=== PATIENT | female | born 1990 | race Caucasian/White ===

== ENCOUNTER 2017-09-25 16:11 | Emergency (ER) | payer OTHER ==
[2017-09-25 16:16] VITALS: BP 134/88
--- NOTE | 2017-09-25 16:43 | ER Document Report ---
ED General - General TRAVEL OUTSIDE OF THE [place] IN LAST 30 DAYS: No - General Chief Complaint: Bloody Stools Stated Complaint: POSSIBLE BLOOD IN STOOL Time Seen by Provider: 09/25/17 16:31 Notes: Patient's presents with concern of bright red blood mixed in her stool that started this morning. Has not had these symptoms before. She did have gastric bypass but this was over 2 months ago. Denies any recent fevers chills nausea or vomiting. She does have a history of constipation but states that it has been better recently. Denies any black stools. She also states that she is been having sharp right-sided flank pain that is better with stretching her back forward but worse with turning to the left and right. Denies any recent traumas or falls. Denies any recent trauma to the rectum. Not on any blood thinners (LONG,YOLANDE H) - Related Data Allergies/Adverse Reactions: No Known Allergies Allergy (Verified 09/25/17 16:12) Past Medical History - Social History Smoking Status: Never Smoker Chew tobacco use (# tins/day): No Frequency of alcohol use: Occasional Drug Abuse: None Family History: None Patient has suicidal ideation: No Patient has homicidal ideation: No Renal/ Medical History: Denies: Hx Peritoneal Dialysis Review of Systems - Review of Systems Constitutional: No symptoms reported EENT: No symptoms reported Cardiovascular: No symptoms reported Respiratory: No symptoms reported Gastrointestinal: No symptoms reported, Rectal bleeding Genitourinary: No symptoms reported Female Genitourinary: No symptoms reported Musculoskeletal: No symptoms reported, Back pain - Right-sided back pain Skin: No symptoms reported Hematologic/Lymphatic: No symptoms reported Neurological/Psychological: No symptoms reported Physical Exam - General General appearance: Appears well - HEENT Head: Normocephalic, Atraumatic - Respiratory Respiratory status: No respiratory distress Chest status: Nontender - Cardiovascular Rhythm: Regular Heart sounds: Normal auscultation - Abdominal Inspection: Normal Distension: No distension Bowel sounds: Normal - Back Back: Normal, Nontender - Neurological Neuro grossly intact: Yes Cognition: Normal Orientation: AAOx4 - Psychological Associated symptoms: Normal affect - Vital signs Vitals: Temp Pulse Resp BP Pulse Ox 98.3 F 62 16 134/88 H 99 09/25/17 16:15 09/25/17 16:15 09/25/17 16:15 09/25/17 16:15 09/25/17 16:15 Course - Re-evaluation Re-evalutation: 09/25/17 16:42 Patient is well-appearing in no acute distress a benign exam. Her back pain appears musculoskeletal as it is positional in nature worse with movement and better with rest. She also has had bright red blood in stool that started today. I explained the patient constipation can cause this and will obtain KUB to evaluate her stool burden that she has been having history of constipation in the past. Does not appear infectious no recent nausea vomiting or fevers. No burning with urination but will evaluate urinalysis and test as well. 09/25/17 17:50 Urinalysis shows no signs of infection KUB does show nonobstructive gas pattern with mild amount of stool in transverse colon. Will place patient on MiraLAX and instructed to follow-up with primary care physician in the next 3-4 days if symptoms are persisting or to return to emergency department sooner if worsening symptoms and any development of fevers. (YOLANDE MIMS) - Vital Signs Vital signs: Temp Pulse Resp BP Pulse Ox 98.3 F 62 16 134/88 H 99 09/25/17 16:15 09/25/17 16:15 09/25/17 16:15 09/25/17 16:15 09/25/17 16:15 - Laboratory Laboratory results interpreted by me: 09/25/17 16:46 Urine Protein 100 H Urine Ketones TRACE H Urine Blood SMALL H Urine Bilirubin MODERATE H Urine Urobilinogen 4.0 H Discharge - Discharge Clinical Impression: Rectal bleed Condition: Good Disposition: HOME, SELF-CARE Additional Instructions: Please take MiraLAX as prescribed and follow-up with your primary care physician in the next 5-6 days if symptoms are continuing or sooner in the emergency department for any other concerns worsening symptoms or fevers Prescriptions: Polyethylene Glycol 3350 [Miralax Powder 17 gm/Packet] 1 packet PO DAILY #30 pkg Forms: Return to Work Scribe Attestation: 09/26/17 23:03 I personally performed the services described documentation, reviewed and edited the documentation which was dictated to describe my presence, and it accurately records my words and actions. (YOLANDE MIMS)
[2017-09-25 17:10] LABS: APPEARANCE,URINE CLOUDY; BILIRUBIN,URINE MODERATE (NEGATIVE); COLOR,URINE AMBER; GLUCOSE, URINE NEGATIVE (NEGATIVE); KETONES,URINE TRACE mg/dL (NEGATIVE); LEUKOCYTE ESTERASE,URINE NEGATIVE (NEGATIVE); NITRITE,URINE NEGATIVE (NEGATIVE); PROTEIN,URINE 100 mg/dL (NEGATIVE)
--- NOTE | 2017-09-25 17:27 | RADIOLOGY REPORT (SQ) ---
EXAM DESCRIPTION: KUB/ABDOMEN (SINGLE VIEW) COMPLETED DATE/TIME: 09/25/2017 5:13 pm REASON FOR STUDY: eval for constipation COMPARISON: None. NUMBER OF VIEWS: One view. TECHNIQUE: Supine radiographic image of the abdomen acquired. LIMITATIONS: None. FINDINGS: BOWEL GAS PATTERN: Normal bowel gas pattern. No dilated loops. CALCIFICATIONS: No suspicious calcifications. SOFT TISSUES: No gross mass or suggestion of organomegaly. HARDWARE: None in the abdomen. BONES: No acute fracture. No worrisome bone lesions. OTHER: No other significant finding. IMPRESSION: NO RADIOGRAPHIC EVIDENCE FOR ACUTE ABDOMINAL DISEASE. TECHNICAL DOCUMENTATION: JOB ID: [id number] [place]-[id number] 2010 [employer]- All Rights Reserved Reading location - IP/workstation name: [email or web address]
== END 2017-09-25 18:00 | disposition home or self-care (01) ==
LOC: ER 16:11
DX: K62.5 Hemorrhage of anus and rectum (principal); Z98.84 Bariatric surgery status
CPT/HCPCS: 74018; 81001; 81025; 99283

== ENCOUNTER 2017-12-10 09:36 | Emergency (ER) | payer OTHER ==
[2017-12-10] MEDS ORDERED: ONDANSETRON HCL INJ/PF 4 MG/2 ML SDV IV ONE (09:57)
[2017-12-10] MEDS ORDERED: NORMAL SALINE 1000 ML 1,000 ML IV ONE (09:57)
[2017-12-10] MEDS ORDERED: KETOROLAC TROMETHAMINE INJ/PF 30 MG/1 ML SDV IV ONE (09:58)
--- NOTE | 2017-12-10 09:58 | ER Document Report ---
ED General - General Chief Complaint: Low Back Pain Stated Complaint: BACK PAIN Time Seen by Provider: 12/10/17 09:48 Notes: Patient is a 27-year-old female who presents emergency department the chief complaint of sudden onset left flank pain. Patient states that she was at work and started initially intermittently at first and now is a constant sharp stabbing pain in her back is worse with movement. She admits to associated pyuria, urinary frequency and urgency. Denies any fevers or chills. She admits to nausea without vomiting. Otherwise healthy female. Last menstrual period was 2 weeks ago. Patient is currently sexually active and actively trying to get . TRAVEL OUTSIDE OF THE [place] IN LAST 30 DAYS: No - Related Data Allergies/Adverse Reactions: No Known Allergies Allergy (Verified 09/25/17 16:12) Past Medical History - Social History Smoking Status: Never Smoker Family History: None Renal/ Medical History: Denies: Hx Peritoneal Dialysis Past Surgical History: Reports: Hx Abdominal Surgery - gastric bypass Review of Systems - Review of Systems Constitutional: No symptoms reported Cardiovascular: No symptoms reported Respiratory: No symptoms reported Gastrointestinal: See HPI Genitourinary: See HPI Female Genitourinary: No symptoms reported Musculoskeletal: See HPI -: Yes All other systems reviewed and negative Physical Exam - Vital signs Vitals: Temp Pulse Resp BP Pulse Ox 98.1 F 74 16 136/94 H 100 12/10/17 09:41 12/10/17 09:41 12/10/17 09:41 12/10/17 09:41 12/10/17 09:41 - Notes Notes: PHYSICAL EXAM GENERAL: Alert, interacts well. HEAD: Normocephalic, atraumatic. EYES: Pupils equal, round, and reactive to light. Extraocular movements intact. ENT: Oral mucosa moist, tongue midline. NECK: Full range of motion. Supple. Trachea midline. LUNGS: Clear to auscultation bilaterally, no wheezes, rales, or rhonchi. No respiratory distress. HEART: Regular rate and rhythm. No murmurs, gallops, or rubs. ABDOMEN: Soft, nondistended, nontender. No guarding, rebound, or rigidity.. Bowel sounds present in all 4 quadrants. Back pain: Significant for left CVA tenderness no superficial tenderness to palpation of the bilateral parathoracic and paralumbar musculature. No spinous process deformities, step-offs or tenderness. EXTREMITIES: Moves all 4 extremities spontaneously. No edema, No cyanosis. NEUROLOGICAL: Alert and oriented x4. Normal speech. PSYCH: Normal affect, normal mood. SKIN: Warm, dry, normal turgor. No rashes or lesions noted. Course - Re-evaluation Re-evalutation: 12/10/17 13:[address] negative for stone,, will send for US to r/o torsion 12/10/17 14:09 US (-) for torsion but shows plevic free fluid and cyst. Ovary with bloodflow, no concern for torsion. Patient feeling better. Tolerating PO. Low suspicion for torsion, PID, ectopic, appendicitis, kidney stone. Will d.c with nausea and pain medication. Given strict return precautions. - Vital Signs Vital signs: Temp Pulse Resp BP Pulse Ox 98.1 F 89 16 125/79 97 12/10/17 14:38 12/10/17 14:38 12/10/17 14:38 12/10/17 14:38 12/10/17 14:38 - Laboratory Result Diagrams: 12/10/17 10:30 12/10/17 10:30 Laboratory results interpreted by me: 12/10/17 10:30 RDW 14.1 H - Diagnostic Test Radiology reviewed: Image reviewed, Reports reviewed Discharge - Discharge Clinical Impression: Ovarian cyst Qualifiers: Laterality: left Qualified Code(s): N83.202 - Unspecified ovarian cyst, left side Condition: Good Disposition: HOME, SELF-CARE Instructions: Use of Cicz-Dgv-Wzqvapy Ibuprofen ([facility]), Ovarian Cyst ([facility]) Prescriptions: Ondansetron [Zofran Odt 4 mg Tablet] 1 - 2 tab PO Q4H PRN #15 tab.rapdis PRN Reason: For Nausea/Vomiting Tramadol HCl 50 mg PO BID #10 tablet Forms: Return to Work Referrals: [facility] [Provider Group] - Follow up in 3-5 days
[2017-12-10 10:35] LABS: APPEARANCE,URINE CLEAR; BILIRUBIN,URINE NEGATIVE (NEGATIVE); COLOR,URINE YELLOW; GLUCOSE, URINE NEGATIVE (NEGATIVE); KETONES,URINE NEGATIVE (NEGATIVE); LEUKOCYTE ESTERASE,URINE NEGATIVE (NEGATIVE); NITRITE,URINE NEGATIVE (NEGATIVE); PROTEIN,URINE NEGATIVE (NEGATIVE); URINE SPECIFIC GRAVITY 1.015; UROBILINOGEN,URINE NEGATIVE mg/dL (<2.0)
[2017-12-10 10:47] LABS: ABSOLUTE EOSINOPHILS # (AUTO) 0.1 10^3/uL (0.0-0.6); ABSOLUTE LYMPHOCYTES (AUTO) 1.6 10^3/uL (0.5-4.7); ABSOLUTE MONOCYTES (AUTO) 0.7 10^3/uL (0.1-1.4); ABSOLUTE NEUT (AUTO) 5.1 10^3/uL (1.7-8.2); BASOPHILS % (AUTO) 0.2 % (0-2); EOSINOPHILS % (AUTO) 1.7 % (0-6); HEMATOCRIT 40.7 % (36.0-47.0); HEMOGLOBIN 13.8 g/dL (12.0-15.5); LYMPHOCYTES % (AUTO) 21.2 % (13-45); MEAN CORPUSCULAR HEMOGLOBIN 29.9 pg (27.0-33.4); MEAN CORPUSCULAR HGB CONC 33.9 g/dL (32.0-36.0); MEAN CORPUSCULAR VOLUME 88 fl (80-97); MONOCYTES % (AUTO) 9.2 % (3-13); PLATELET COUNT 287 10^3/uL (150-450); RED BLOOD COUNT 4.62 10^6/uL (3.72-5.28); RED CELL DISTRIBUTION WIDTH 14.1 % (11.5-14.0); SEGMENTED NEUTROPHILS % (AUTO) 67.7 % (42-78); TOTAL CELLS COUNTED % (AUTO) 100 %; WHITE BLOOD COUNT 7.5 10^3/uL (4.0-10.5)
[2017-12-10 11:05] LABS: ANION GAP 9 (5-19); BLOOD UREA NITROGEN 12 mg/dL (7-20); CALCIUM 9.5 mg/dL (8.4-10.2); CARBON DIOXIDE 27 mmol/L (22-30); CHLORIDE 105 mmol/L (98-107); GLUCOSE 85 mg/dL (75-110); POTASSIUM 4.2 mmol/L (3.6-5.0); SODIUM 141.2 mmol/L (137-145)
[2017-12-10] MEDS ORDERED: MORPHINE SULFATE 10 MG/ML INJ IV ONE ×2 (12:01→12:53)
--- NOTE | 2017-12-10 12:28 | RADIOLOGY REPORT (SQ) ---
EXAM DESCRIPTION: CT LTD RENAL STONE PROTOCOL ON COMPLETED DATE/TIME: 12/10/2017 11:50 am REASON FOR STUDY: left flank pain COMPARISON: None. TECHNIQUE: CT scan of the abdomen and pelvis performed without intravenous or oral contrast. Images reviewed with lung, soft tissue, and bone windows. Reconstructed coronal and sagittal MPR images revi ewed. All images stored on PACS. All CT scanners at this facility use dose modulation, iterative reconstruction, and/or weight based d osing when appropriate to reduce radiation dose to as low as reasonably achievable (ALARA). [facility]: Dose Right [facility]: CareDose [facility]: Dose Right [facility]: Teradose 4D [facility]: [employer] RADIATION DOSE: 579.14mGy. LIMITATIONS: None. FINDINGS: LOWER CHEST: Chronic scarring right lung base. NON-CONTRASTED LIVER, SPLEEN, ADRENALS: Liver: No abnormality seen. Spleen: No abnormality seen. A drenals: No abnormality seen. PANCREAS: No abnormality seen. GALLBLADDER: No abnormality seen. RIGHT KIDNEY AND URETER: No abnormality seen. LEFT KIDNEY AND URETER: No abnormality seen. AORTA AND RETROPERITONEUM: No aneurysm. No retroperitoneal masses or adenopathy. Nonenlarged periaor tic and interaortocaval nodes. Small inguinal nodes. Small mesenteric nodes right lower quadrant. BOWEL AND PERITONEAL CAVITY: Surgical clips left upper quadrant from previous gastric bypass. APPENDIX: Normal. PELVIS, BLADDER, AND ABDOMINAL WALL:Urinary bladder no abnormality seen. Uterus: No abnormality see n. Probable follicular cyst left ovary. BONES: No abnormality seen. OTHER: No other significant finding. IMPRESSION: STATUS POST GASTRIC BYPASS. OTHERWISE, NO SIGNIFICANT ABNORMALITY SEEN. COMMENT: Quality ID # [id number]: Final reports with documentation of one or more dose reduction techniques (e.g., Automated exposure control, adjustment of the mA and/or kV according to patient size, use of iterative reconstruction technique) TECHNICAL DOCUMENTATION: JOB ID: [id number] [employer]- All Rights Reserved Reading location - IP/workstation name: [email or web address]
--- NOTE | 2017-12-10 13:45 | RADIOLOGY REPORT (SQ) ---
EXAM DESCRIPTION: U/S NON OB PEL W/DOPPLER COMPLETED DATE/TIME: 12/10/2017 1:18 pm REASON FOR STUDY: LLQ pain, r/o torsion COMPARISON: None. TECHNIQUE: Dynamic and static grayscale images acquired of the pelvis via transabdominal approach an d recorded on PACS. Additional selected color Doppler and spectral images recorded. LIMITATIONS: None. FINDINGS: UTERUS: The uterus demonstrates normal echogenicity measuring 9.7 x 5.8 x 6.9 cm. ENDOMETRIAL STRIPE: The endometrium measures 1.4 cm. No definite endometrial abnormality seen. CERVIX: Small nabothian cysts of the cervix. RIGHT OVARY AND DOPPLER: Right ovary nonvisualized. LEFT OVARY AND DOPPLER: The left ovary measures 4.1 x 4 x 3.4 cm. There is evidence of a left ovaria n cyst measuring 2.6 x 1.5 x 1.3 cm. Doppler flow to the left ovary noted. FREE FLUID: Free fluid noted in the cul de sac. IMPRESSION: Evidence of a left ovarian cyst measuring 2.6 cm. Small amount of free fluid surroundin g the left ovary. TECHNICAL DOCUMENTATION: JOB ID: [id number] [place]-[id number] 2010 [employer]- All Rights Reserved Rev-12/16 Reading location - IP/workstation name: [email or web address]
[2017-12-10 14:48] VITALS: BP 125/79
== END 2017-12-10 14:48 | disposition home or self-care (01) ==
LOC: ER 09:36
DX: N83.202 Unspecified ovarian cyst, left side (principal); N39.0 Urinary tract infection, site not specified; R11.0 Nausea; R39.15 Urgency of urination; R35.0 Frequency of micturition; Z98.84 Bariatric surgery status
CPT/HCPCS: 99284; 36415; 85025; 81025; 80048; 81001; 76856; 93976; 76380; J1885; J2270; J2405; J7030

== ENCOUNTER 2018-06-04 08:50 | Emergency (ER) | payer OTHER ==
[2018-06-04] MEDS ORDERED: ACETAMINOPHEN 325 MG TABLET PO ONE (08:54)
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
[2018-06-04 10:33] VITALS: BP 129/85
== END 2018-06-04 10:32 | disposition home or self-care (01) ==
LOC: ER 08:50
DX: M79.641 Pain in right hand (principal); Z98.84 Bariatric surgery status
CPT/HCPCS: 99283; 73130; L3908

== ENCOUNTER 2018-08-17 15:25 | Emergency (ER) | payer OTHER | END 2018-08-17 15:34 | disposition left against medical advice (07) | LOC: ER 15:25 | DX: Z53.21 Procedure and treatment not carried out due to patient leaving prior to being seen by health care provider (principal) ==